=== PATIENT | male | born 1945 | race Caucasian/White ===

== ENCOUNTER 2016-12-26 20:49 | Emergency (ER) | payer MEDICARE ==
[~2016-12-26] VITALS: Ht 185.4 cm; Wt 73.8 kg
[2016-12-26] MEDS ORDERED: MIRT15TA4 PO (21:37)
[2016-12-26] MEDS ORDERED: DIAZ5TAB PO (21:37)
[2016-12-26 22:15] LABS: ASPARTATE AMINO TRANSFERASE 15 U/L (15-37); BLOOD UREA NITROGEN 29 mg/dL (7-18)
[2016-12-26 22:16] LABS: ACETAMINOPHEN < 2 mcg/mL (10-30)
[2016-12-26 22:18] VITALS: BP 118/76
[2016-12-26 23:22] LABS: DAU SCREEN DISCLAIMER
== END 2016-12-27 00:13 | disposition home or self-care (01) ==
LOC: ED 12-27 00:10
DX: F41.1 Generalized anxiety disorder (principal); F32.9 Major depressive disorder, single episode, unspecified; Z87.891 Personal history of nicotine dependence
CPT/HCPCS: 36415; 80053; 80307; 80329; 81001; 84443; 85025; 87086; 99284; Q0177; G0480